=== PATIENT | male | born 1945 | race Caucasian/White ===

== ENCOUNTER 2018-01-05 19:05 | Emergency (ER) | payer MEDICARE ==
[2018-01-05 19:41] VITALS: BP 125/78
--- NOTE | 2018-01-05 19:58 | UC ---
Lower Extremity/Ankle HPI - HPI Summary HPI Summary: 72 year old with left foot pain . 2 weeks ago, injury to left foot, increase pain and swelling in past 2 days. was using a drill bit 2 weeks ago and went through his shoe and cut his foot. a few days ago went to kick an item and had significant pain and then swelling and redness set in the past few days around the area the drill bit went in the left foot. no fever. can walk but uncomfortable. no previous trauma per pt . no pain / swelling that occurred after the initial trauma but after he kicked himself [ End ] - History of Current Complaint Chief Complaint: UCLowerExtremity Stated Complaint: LEFT FOOT Time Seen by Provider: 01/05/18 19:49 Hx Obtained From: Patient Onset/Duration: Sudden Onset Severity Initially: Mild Severity Currently: Moderate Pain Intensity: 4 Aggravating Factor(s): Standing, Ambulation Alleviating Factor(s): Rest, Elevation Able to Bear Weight: Yes - Allergies/Home Medications Allergies/Adverse Reactions: Allergies Allergy/AdvReac Type Severity Reaction Status Date / Time No Known Allergies Allergy Verified 01/05/18 19:41 Home Medications: Home Medications Aspirin TAB* [Aspirin 325 MG TAB*] 325 mg PO DAILY 01/05/18 [History Confirmed 01/05/18] Pravastatin Sodium 40 mg PO DAILY 01/05/18 [History Confirmed 01/05/18] PMH/Surg Hx/FS Hx/Imm Hx Previously Healthy: Yes Endocrine History: Dyslipidemia - Surgical History Surgical History: None - Social History Alcohol Use: None Substance Use Type: None Smoking Status (MU): Never Smoked Tobacco Review of Systems Skin: Other - redness and swelling left 1st large toe Musculoskeletal: Arthralgia Is Patient Immunocompromised?: No All Other Systems Reviewed And Are Negative: Yes Physical Exam Triage Information Reviewed: Yes Appearance: Well-Appearing Vital Signs: Initial Vital Signs Temp 99.0 F 01/05/18 19:37 Pulse 68 01/05/18 19:37 Resp 16 01/05/18 19:37 BP 125/78 01/05/18 19:37 Pulse Ox 97 01/05/18 19:37 Vital Signs Reviewed: Yes Eye Exam: Normal ENT Exam: Normal Neck: Positive: 1 Respiratory Exam: Normal Cardiovascular Exam: Normal Musculoskeletal Exam: Normal Musculoskeletal: Positive: Strength Intact, ROM Intact Neurological Exam: Normal Psychological Exam: Normal Skin Exam: Normal Skin: Positive: Other - left base of the 1st MTP with lateral abrasion , redness and swelling around that area with warmth to touch and tenderness. no streaking . no discharge. mild abrasion at the site the trauma took place. FROM . gait slightly antalgic. Diagnostics - Laboratory Diagnostic Studies Completed/Ordered: POSSIBLE NONDISPLACED FRACTURE BASE OF THE DISTAL PHALANX. xray reading done by rads Lower Extremity Course/Dx - Course Course Of Treatment: with the swelling / redness setting in on the foot there is concern for cellulitis -- will treat at this time and f/u with PCP . of note patient called after he left the and he is aware of potentuial non displaced fracture and to [facility] for follow up / possible imaging and he states he will. It does appear the fracture is more proximal than his pain but none the less he was notified He was appreciateive of the call at 2111. He is aware to take it easy and if he does not it could become displaced causing pain / potential need for surgery -- we will try to cc PCP Naty - Differential Dx/Diagnosis Differential Diagnosis/HQI/PQRI: Cellulitis, Contusion, Fracture (Closed), Infection Provider Diagnoses: Left foot abrasion / cellulitis / ?possible non displaced fracture Discharge - Discharge Plan Condition: Good Disposition: HOME Prescriptions: Cephalexin CAP* [Keflex CAP*] 500 mg PO TID #30 cap Patient Education Materials: Cellulitis (ED) Referrals: Jono Alfonso MD [Primary Care Provider] - If Needed Images Feet (Multiple View): 1 - redness / non putting trace swelling and in the center is a dried abrasion that is superficial and tender to palpation of the area. cap refill < 3 sec. peripheral pulses brisk. FROM of foot and toes and ankle. no streaking. no discharge.
--- NOTE | 2018-01-05 20:24 | RAD ---
INDICATION: Left great toe TECHNIQUE: 3 views of the left great toe were obtained. FINDINGS: There is soft tissue swelling present. On one view there is a faint radiolucent line present at the base of the distal phalanx possibly representing a nondisplaced fracture. There appears be a chronic fracture of the medial sesamoid bone. No other fractures are seen. IMPRESSION: POSSIBLE NONDISPLACED FRACTURE BASE OF THE DISTAL PHALANX.
== END 2018-01-05 20:26 | disposition home or self-care (01) ==
LOC: UCCORT 19:05
DX: S90.812A Abrasion, left foot, initial encounter (principal); L03.116 Cellulitis of left lower limb; W29.8XXA Contact with other powered hand tools and household machinery, initial encounter; Y93.9 Activity, unspecified; Y92.9 Unspecified place or not applicable; E78.5 Hyperlipidemia, unspecified
CPT/HCPCS: 99212; G0463